=== PATIENT | female | born 1995 | race Caucasian/White ===

== ENCOUNTER 2018-09-13 15:01 | Emergency (ER) | payer OTHER ==
--- NOTE | 2018-09-13 15:05 | ER Report ---
History and Physical Time Seen By MD: 15:05 HPI/ROS CHIEF COMPLAINT: Neck injury HISTORY OF PRESENT ILLNESS: This is a 22-year-old female presents to the emergency department for a neck injury. Patient states that she was playing basketball on Wednesday, she collided with another player her head was thrust backwards, since then she's had some intermittent neck pain, she also states that she had some headaches, she also states that yesterday she felt that for about an hour after a workout she had some increased numbness and tingling in her hands and "inability to completely formulate a sentence", that has since then resolved. She continues to have a low-grade headache. She is a student athlete, followed up with a ehr trainer, they assessed her and thought she had a concussion however she discussed this with her mother and her mother called her primary care provider and said to go to the ER emergently still concerned about a carotid dissection. REVIEW OF SYSTEMS: Constitutional: No fever, no chills. Eyes: No discharge. ENT: No sore throat. Cardiovascular: No chest pain, no palpitations. Respiratory: No cough, no shortness of breath. Gastrointestinal: No abdominal pain, no vomiting. Genitourinary: No hematuria. Musculoskeletal: As above. Skin: No rashes. Neurological: As above. Allergies: Coded Allergies: No Known Drug Allergies (Unverified , 09/13/18) Past Medical/Surgical History The patient has no significant past medical or surgical history. Reviewed Nurses Notes: Yes Constitutional Vital Sign - Last 24 Hours 09/13/18 09/13/18 09/13/18 09/13/18 15:05 15:30 16:00 16:50 Temp 97.8 Pulse 62 62 68 63 Resp 20 B/P (MAP) 129/98 119/89 (99) 121/91 (101) 119/82 (94) Pulse Ox 96 98 97 99 O2 Delivery Room Air Physical Exam General Appearance: The patient is alert, has no immediate need for airway protection and no signs of toxicity. Eyes: 3mm Pupils equal, round and reactive, no pallor or injection. No lid droop. EOMs intact. No nystagmus. ENT, Mouth: Mucous membranes are moist. Respiratory: There are no retractions, lungs are clear to auscultation. Cardiovascular: Regular rate and rhythm. Gastrointestinal: Abdomen is soft and non tender, no masses, bowel sounds normal. Neurological: Alert and oriented 4. Moving all commands. Following all commands. No focal neuro deficits. Skin: Warm and dry, no rashes. Musculoskeletal: Mild tenderness to the musculature on the left side of the cervical spine, there is firmness noted to the left side when compared to the right. Increased left-sided neck pain with resistance, does not increase the intensity of the headache no visual changes. Very slight decrease in strength on the left upper extremity with resistance, Extremities are nontender, nonswollen and have full range of motion. DIFFERENTIAL DIAGNOSIS: After history and physical exam differential diagnosis was considered for cervical strain, cervical fracture, subluxation, carotid artery dissection, vertebral artery dissection. Medical Decision Making EKG/Imaging Imaging PATIENT NAME: Liz Squires : 1995 MR: [id number] V: [id number] EXAM DATE: [id number] ORDERING PHYSICIAN: KRISTA FLANNERY TECHNOLOGIST: [place] [facility] [place] Liz Squires : 1995 Visit/Account:[id number] Date of Sevice: 09/13/2018 EXAMINATION: CTA of the Neck with IV contrast HISTORY: Neck injury. Whiplash injury playing basketball. COMPARISON: None. TECHNIQUE: Overlapping thin sections were obtained during a bolus of IV contrast from the aortic arch through the [place]. Reconstruction of the source data set includes multiplanar 2D in the sagittal and coronal planes, and 3D coronal thin slab MIP series. Medical Officer Psychiatry images have been stored on PACS. Stenosis of the internal carotid arteries are calculated using NASCET criteria. CONTRAST: 75 mL of IV Isovue-370 One of the following dose optimization techniques was utilized in the performance of this exam: Automated exposure control; adjustment of the mA and/or kV according to the patient's size; or use of an iterative reconstruction technique. Specific details can be referenced in the facility's radiology CT exam operational policy. FINDINGS: Angiographic findings: Aortic arch and great vessels: Negative. Right CCA/ICA: Negative. 0% stenosis of the origin of the right ICA. Left CCA/ICA: Negative. 0% stenosis of the origin of the left ICA. Vertebrobasilar: Negative. [place]: Negative. Additional non-angiographic findings: None significant. IMPRESSION: Normal CTA of the neck. Report Dictated By: Rian Koch MD at 09/13/2018 4:31 PM Report E-Signed By: Rian Koch MD at 09/13/2018 4:37 PM WSN:[id number] ED Course/Re-evaluation ED Course The patient was admitted to room. A history and physical were obtained. Differential diagnoses were considered. After a lengthy discussion with the patient and her mother, patient did give me permission to speak with her mother, we have electively decided to CT of the neck. Pathology, I did review this with the patient. I did tell the patient that its likely a strain as we discussed earlier with some radiculopathy and the inflamed muscles on the left side of her neck likely causing the headache. Patient expressed understanding, I did offer her a muscle relaxer however she declined at this time, she states she will continue taking Tylenol. she had no other questions or concerns at this time and discharged home. Decision to Disposition Date: September 13, 2018 Decision to Disposition Time: 16:57 Depart Departure Latest Vital Signs Vital Signs Date Time Temp Pulse Resp B/P (MAP) Pulse Ox O2 Delivery O2 Flow Rate FiO2 09/13/18 16:50 63 119/82 (94) 99 09/13/18 15:05 97.8 20 Room Air Impression: Primary Impression: Cervical strain, acute Additional Impressions: Cervical radiculopathy Headache Condition: Improved Disposition: HOME OR SELF-CARE Referrals: SUSSY WYNN DO 2 Days Patient Instructions: Cervical Neck Strain Exercises (GEN), Cervical Radiculopathy (ED), Cervical Strain (ED) Additional Instructions: The CT scan of your neck was negative for any acute abnormalities. Please follow-up with Dr. Wynn as scheduled this . Take 500-1000mg of Tylenol every 8 hours as needed for pain. Can try a warm compress to the neck, this may help with some the discomfort. Drink plenty of water. Get plenty of rest. Return to the ER for any other concerns or worsening symptoms. Problem Qualifiers Primary Impression: Cervical strain, acute Encounter type: initial encounter Qualified Codes: S16.1XXA - Strain of muscle, fascia and tendon at neck level, initial encounter Additional Impressions: Headache Headache type: unspecified Headache chronicity pattern: acute headache Intractability: not intractable Qualified Codes: R51 - Headache KRISTA FLANNERY ENVIRONMENTAL FIELD SERVICES TECHNICIAN-BC September 13, 2018 15:05
[2018-09-13] MEDS ORDERED: NS(*) 0.9% 50 ML BAG 50 ML ONE (16:00)
[2018-09-13] MEDS ORDERED: IOPAMIDOL 76% 150 ML INFUS BTL 150 ML ONE (16:00)
--- NOTE | 2018-09-13 16:42 | RADIOLOGY IMAGING REPORT ---
[place]AC[place] [facility] [place] NAME: Liz Squires : 1995 MR: [id number] V: [id number] EXAM DATE: ORDERING PHYSICIAN: KRISTA FLANNERY TECHNOLOGIST: Location: [facility] - [place] Patient: Liz Squires : 1995 Visit/Account:[id number] Date of Sevice: 09/13/2018 EXAMINATION: CTA of the Neck with IV contrast HISTORY: Neck injury. Whiplash injury playing basketball. COMPARISON: None. TECHNIQUE: Overlapping thin sections were obtained during a bolus of IV contrast from the aortic ar ch through the [place]. Reconstruction of the source data set includes multiplanar 2D in the sagittal and coronal planes, and 3D coronal thin slab MIP series. Junior Media Buyer images have been st ored on PACS. Stenosis of the internal carotid arteries are calculated using NASCET criteria. CONTRAST: 75 mL of IV Isovue-370 One of the following dose optimization techniques was utilized in the performance of this exam: Autom ated exposure control; adjustment of the mA and/or kV according to the patient's size; or use of an i terative reconstruction technique. Specific details can be referenced in the facility's radiology C T exam operational policy. FINDINGS: Angiographic findings: Aortic arch and great vessels: Negative. Right CCA/ICA: Negative. 0% stenosis of the origin of the right ICA. Left CCA/ICA: Negative. 0% stenosis of the origin of the left ICA. Vertebrobasilar: Negative. [place]: Negative. Additional non-angiographic findings: None significant. IMPRESSION: Normal CTA of the neck. Report Dictated By: Rian Koch MD at 09/13/2018 4:31 PM Report E-Signed By: Rian Koch MD at 09/13/2018 4:37 PM WSN:[id number]
[2018-09-13 16:50] VITALS: BP 119/82
== END 2018-09-13 17:08 | disposition home or self-care (01) ==
LOC: ER 15:06
DX: S16.1XXA Strain of muscle, fascia and tendon at neck level, initial encounter (principal); M54.12 Radiculopathy, cervical region; R51 Headache; Y93.67 Activity, basketball
CPT/HCPCS: 70498; 99284; J7050; Q9967